=== PATIENT | female | born 1980 | race Two or more races ===

== ENCOUNTER 2019-01-09 18:25 | Emergency (ER) | payer OTHER ==
[~2019-01-09] VITALS: Ht 162.6 cm; Wt 85.3 kg
[2019-01-09 18:27] VITALS: BP 126/82
[2019-01-09] MEDS ORDERED: KETOROLAC TROMETHAMINE INJ 60 MG/2 ML VIAL IM ONE ×2 (18:46→19:00)
--- NOTE | 2019-01-09 18:53 | NUR ---
PT STATES NO CHANCE OF BEING . LMP 12/25/18
== END 2019-01-09 19:27 | disposition home or self-care (01) ==
LOC: ER 18:31
DX: M54.5 Low back pain (principal); M54.6 Pain in thoracic spine; M25.561 Pain in right knee; Z98.890 Other specified postprocedural states
CPT/HCPCS: 96372; 99283; J1885

== ENCOUNTER 2019-08-17 21:06 | Emergency (ER) | payer OTHER ==
[~2019-08-17] VITALS: Ht 152.4 cm; Wt 88.5 kg
[2019-08-17 21:53] LABS: BASOPHILS # (AUTO) 0.1 /CMM (0.0-0.2); BASOPHILS % (AUTO) 0.8 % (0.0-2.0); EOSINOPHILS % (AUTO) 0.6 % (0.0-6.0); HEMATOCRIT 41 % (33-45); HEMOGLOBIN 13.5 g/dL (11.5-14.8); LYMPHOCYTES % (AUTO) 21.5 % (20.0-44.0); MEAN CORPUSCULAR HGB CONC 33 g/dl (31.0-36.0); MEAN CORPUSCULAR VOLUME 92 fL (82-100); MONOCYTES # (AUTO) 0.8 /CMM (0.1-1.30); NEUTROPHILS # (AUTO) 6.3 /CMM (1.8-8.9); NEUTROPHILS % (AUTO) 68.1 % (43.0-81.0); PLATELET COUNT (AUTO) 303 /CMM (150-450); RED BLOOD CELL COUNT(AUTO) 4.42 MIL/uL (4.0-5.2); WHITE BLOOD COUNT (AUTO) 9.3 K/uL (4.3-11.0)
[2019-08-17 22:00] LABS: CALCIUM, SERUM 9.4 mg/dL (8.5-10.1); CREATININE 0.7 mg/dL (0.6-1.3); POTASSIUM 4.1 mmol/L (3.5-5.1)
[2019-08-17] MEDS ORDERED: IV NS 0.9% 1,000 ML BAG IV ONE (22:00)
[2019-08-17 22:06] LABS: ALBUMIN 3.7 g/dL (3.4-5.0); BILIRUBIN,TOTAL 0.2 mg/dL (0.2-1.0); TOTAL PROTEIN, SERUM 6.9 g/dL (6.4-8.2)
[2019-08-17 22:14] LABS: APPEARANCE,URINE Clear (CLEAR); BILIRUBIN,URINE Negative (NEGATIVE); BLOOD, URINE Negative Ery/uL (NEGATIVE); COLOR,URINE Yellow (YELLOW); KETONES,URINE Negative (NEGATIVE); LEUKOCYTE ESTERASE ,URINE Negative (NEGATIVE); NITRITE, URINE Negative (NEGATIVE); PROTEIN,URINE Negative (NEGATIVE); UGLUCOSE Negative (NEGATIVE)
--- NOTE | 2019-08-17 22:15 | NUR ---
PATIENT C/O ABDOMINAL PAIN (UPPER, LOWER, AND FLANKS) RADIATING TO THE BACK. PT STATES THAT SHE TOOK IBUPROFEN 600MG AT 1800 WITH NO RELIEF. AAOX4. NO SOB. BREATHING EVENLY AND UNLABORED ON ROOM AIR. CONNECTED TO THE MONITOR.
[2019-08-17 22:24] LABS: BACTERIA,URINE Few /HPF (None Seen); RBC,URINE 0-2 /HPF (0-2); SQUAMOUS EPITHELIAL CELL,UR Few /HPF (None Seen); WBC,URINE 0-2 /HPF (0-3)
[2019-08-17] MEDS ORDERED: KETOROLAC TROMETHAMINE INJ 30 MG/ML VIAL IV ONE (22:30)
[2019-08-17] MEDS ORDERED: ONDANSETRON HCL/PF - ER 4 MG/2 ML VIAL IV ONE (22:30)
[2019-08-17] MEDS ORDERED: KETOROLAC TROMETHAMINE 15 MG/ML VIAL ONE (22:32)
[2019-08-17] MEDS ORDERED: ONDANSETRON HCL/PF 4 MG/2 ML VIAL ONE (22:33)
[2019-08-18 01:19] VITALS: BP 121/74
--- NOTE | 2019-08-18 01:19 | NUR ---
IV removed. Catheter intact and site benign. Pressure and 4x4 applied to site. No bleeding noted. Patient discharged to home in stable condition. Written and verbal after care instructions given. Patient verbalizes understanding of instruction.
== END 2019-08-18 01:19 | disposition home or self-care (01) ==
LOC: ER 21:07
DX: K80.50 Calculus of bile duct without cholangitis or cholecystitis without obstruction (principal)
CPT/HCPCS: 36415; 76705; 80048; 80076; 81001; 83690; 84703; 85025; 96374; 96375; 99284; J1885; J2405 ×2; J7030; 81000-TC

== ENCOUNTER 2021-09-04 21:35 | Emergency (ER) | payer OTHER ==
[~2021-09-04] VITALS: Ht 167.6 cm; Wt 81.6 kg
[2021-09-04] MEDS ORDERED: IV NS 0.9% 500 ML BAG IV ONE (23:00)
[2021-09-04] MEDS ORDERED: MORPHINE SULFATE INJ 2 MG/ML DISP.SYRIN IV ONE (23:00)
[2021-09-04] MEDS ORDERED: ONDANSETRON HCL/PF 4 MG/2 ML VIAL IVP ONE (23:00)
[2021-09-04] MEDS ORDERED: ONDANSETRON HCL/PF 4 MG/2 ML VIAL ONE (23:02)
[2021-09-04] MEDS ORDERED: MORPHINE SULFATE INJ 4 MG/ML DISP.SYRIN ONE (23:02)
--- NOTE | 2021-09-04 23:05 | NUR ---
BLOOD COLLECTED AND SENT TO LAB
[2021-09-04 23:39] LABS: BASOPHILS % (AUTO) 0.5 % (0.0-2.0); EOSINOPHILS % (AUTO) 2.5 % (0.0-6.0); HEMATOCRIT 37 % (33-45); HEMOGLOBIN 12.4 g/dL (11.5-14.8); LYMPHOCYTES # (AUTO) 2.9 K/uL (0.8-4.8); MEAN CORPUSCULAR HGB CONC 33 g/dl (31.0-36.0); MEAN CORPUSCULAR VOLUME 90 fL (82-100); MONOCYTES # (AUTO) 0.6 K/uL (0.1-1.30); MONOCYTES % (AUTO) 8.1 % (2.0-12.0); NEUTROPHILS # (AUTO) 4.1 K/uL (1.8-8.9); NEUTROPHILS % (AUTO) 51.9 % (43.0-81.0); PLATELET COUNT (AUTO) 312 K/uL (150-450); RED BLOOD CELL COUNT(AUTO) 4.15 MIL/uL (4.0-5.2); WHITE BLOOD COUNT (AUTO) 7.9 K/uL (4.3-11.0)
[2021-09-04 23:44] LABS: BILIRUBIN,URINE NEGATIVE (NEGATIVE); COLOR,URINE YELLOW (YELLOW); LEUKOCYTE ESTERASE ,URINE NEGATIVE (NEGATIVE); NITRITE, URINE NEGATIVE (NEGATIVE); PH,URINE 5.5 (5.0-8.0); PROTEIN,URINE NEGATIVE (NEGATIVE); UGLUCOSE NEGATIVE (NEGATIVE); UROBILINOGEN,URINE 0.2 EU/dL (0.2)
[2021-09-04 23:48] LABS: CALCIUM, SERUM 9.6 mg/dL (8.5-10.1); CREATININE 0.6 mg/dL (0.6-1.3)
[2021-09-04 23:49] LABS: BACTERIA,URINE None seen /HPF (None Seen); CALCIUM OXALATE CRYSTALS,UR Few /HPF (None Seen); RBC,URINE 0-2 /HPF (0-2); SQUAMOUS EPITHELIAL CELL,UR Many /HPF (None Seen); WBC,URINE 0-2 /HPF (0-3)
[2021-09-04 23:50] LABS: MUCUS,URINE Few /LPF (None Seen)
[2021-09-05 00:08] LABS: ALBUMIN 3.4 g/dL (3.4-5.0); BILIRUBIN,DIRECT 0.1 mg/dL (0.0-0.2); BILIRUBIN,TOTAL 0.2 mg/dL (0.2-1.0); TOTAL PROTEIN, SERUM 6.6 g/dL (6.4-8.2)
--- NOTE | 2021-09-05 00:08 | NUR ---
US TECH AT BED SIDE
[2021-09-05 04:21] VITALS: BP 113/60
--- NOTE | 2021-09-05 04:21 | NUR ---
Patient discharged to home in stable condition. Written and verbal after care instructions given. Patient verbalizes understanding of instruction.
== END 2021-09-05 04:21 | disposition home or self-care (01) ==
LOC: ER 21:37
DX: R10.2 Pelvic and perineal pain (principal); R10.30 Lower abdominal pain, unspecified
CPT/HCPCS: 36415; 76856; 80048; 80076; 81001; 84702; 84703; 85025; 85730; 96361; 96374; 96375; 99284; J2270; J2405; J7040

== ENCOUNTER 2021-12-11 07:31 | Emergency (ER) | payer OTHER ==
[~2021-12-11] VITALS: Ht 167.6 cm; Wt 86.2 kg
[2021-12-11] MEDS ORDERED: KETOROLAC TROMETHAMINE INJ 30 MG/ML VIAL IV ONE (08:00)
[2021-12-11] MEDS ORDERED: ONDANSETRON HCL/PF 4 MG/2 ML VIAL IVP ONE (08:00)
[2021-12-11] MEDS ORDERED: IV NS 0.9% 1,000 ML BAG IV ONE (08:00)
[2021-12-11] MEDS ORDERED: MORPHINE SULFATE INJ 2 MG/ML DISP.SYRIN IV ONE (08:00)
--- NOTE | 2021-12-11 08:00 | NUR ---
BIBS W/ C/O DIARRHEA X5 DAYS AND ABDOMINAL PAIN RATED 10/10, NON-RADIATING. PT AMBULATORY AND A/OX4, SLOVENIAN-SPEAKING. ASSISTED TO ER BED 9.
--- NOTE | 2021-12-11 08:05 | NUR ---
LAB AT BEDSIDE
--- NOTE | 2021-12-11 08:09 | NUR ---
URINE COLLECTED AND SENT
[2021-12-11 08:16] LABS: BASOPHILS % (AUTO) 0.5 % (0.0-2.0); EOSINOPHILS % (AUTO) 0.2 % (0.0-6.0); HEMATOCRIT 36 % (33-45); HEMOGLOBIN 12.3 g/dL (11.5-14.8); LYMPHOCYTES # (AUTO) 0.9 K/uL (0.8-4.8); LYMPHOCYTES % (AUTO) 18.3 % (20.0-44.0); MEAN CORPUSCULAR HGB CONC 34 g/dl (31.0-36.0); MEAN CORPUSCULAR VOLUME 86 fL (82-100); MONOCYTES # (AUTO) 0.5 K/uL (0.1-1.30); MONOCYTES % (AUTO) 9.1 % (2.0-12.0); NEUTROPHILS # (AUTO) 3.6 K/uL (1.8-8.9); NEUTROPHILS % (AUTO) 71.9 % (43.0-81.0); PLATELET COUNT (AUTO) 249 K/uL (150-450); RED BLOOD CELL COUNT(AUTO) 4.19 MIL/uL (4.0-5.2)
--- NOTE | 2021-12-11 08:18 | NUR ---
IV LINE ESTABLISHED ON LAC #20, CONVERTED TO SALINE LOCK
--- NOTE | 2021-12-11 08:19 | NUR ---
PT TAKEN TO RADIOLOGY VIA [facility].
[2021-12-11 08:20] LABS: CALCIUM, SERUM 9.3 mg/dL (8.5-10.1); CREATININE 0.6 mg/dL (0.6-1.3); POTASSIUM 3.6 mmol/L (3.5-5.1)
[2021-12-11] MEDS ORDERED: ONDANSETRON HCL/PF 4 MG/2 ML VIAL ONE (08:20)
[2021-12-11] MEDS ORDERED: KETOROLAC TROMETHAMINE 15 MG/ML VIAL ONE (08:20)
[2021-12-11] MEDS ORDERED: MORPHINE SULFATE INJ 4 MG/ML DISP.SYRIN ONE (08:21)
[2021-12-11 08:26] LABS: ALBUMIN 3.4 g/dL (3.4-5.0); BILIRUBIN,DIRECT 0.1 mg/dL (0.0-0.2); BILIRUBIN,TOTAL 0.4 mg/dL (0.2-1.0); TOTAL PROTEIN, SERUM 6.6 g/dL (6.4-8.2)
[2021-12-11 08:34] LABS: BILIRUBIN,URINE NEGATIVE (NEGATIVE); COLOR,URINE YELLOW (YELLOW); LEUKOCYTE ESTERASE ,URINE NEGATIVE (NEGATIVE); NITRITE, URINE NEGATIVE (NEGATIVE); PH,URINE 6.5 (5.0-8.0); PROTEIN,URINE NEGATIVE (NEGATIVE); UGLUCOSE NEGATIVE (NEGATIVE); UROBILINOGEN,URINE 0.2 EU/dL (0.2)
--- NOTE | 2021-12-11 08:35 | NUR ---
PT RETURNED FROM RADIOLOGY
[2021-12-11 08:47] LABS: BACTERIA,URINE 1+ /HPF (None Seen); RBC,URINE 0-2 /HPF (0-2)
--- NOTE | 2021-12-11 08:59 | NUR ---
NS, ZOFRAN, MORPHINE, TORADOL IV GIVEN INDICATED.
--- NOTE | 2021-12-11 09:13 | NUR ---
PT VERBALIZED RELIEF FROM PAIN.
[2021-12-11] MEDS ORDERED: AMOX-430 PO (09:30)
[2021-12-11] MEDS ORDERED: HYDR-3972 PO (09:30)
[2021-12-11 09:51] VITALS: BP 116/74
--- NOTE | 2021-12-11 10:04 | NUR ---
Patient discharged to home in stable condition. Patient ambulatory w/ steady gait. IV line removed; no bleeding noted. Written and verbal after care instructions given. Patient verbalizes understanding of instruction.
== END 2021-12-11 10:04 | disposition home or self-care (01) ==
LOC: ER 07:35
DX: K52.9 Noninfective gastroenteritis and colitis, unspecified (principal)
CPT/HCPCS: 36415; 74176; 80048; 80076; 81001; 83690; 84703; 85025; 96361; 96374; 96375; 99284; J1885; J2270; J2405; J7030

== ENCOUNTER 2022-07-06 17:03 | Emergency (ER) | payer OTHER ==
[~2022-07-06] VITALS: Ht 162.6 cm; Wt 81.6 kg
[~2022-07-06 17:03] MED LIST: AMOX-430 PO; HYDR-3972 PO
[2022-07-06 17:10] VITALS: BP 106/51
--- NOTE | 2022-07-06 18:05 | NUR ---
RAPID FLU AND RAPID STREP DONE.
--- NOTE | 2022-07-06 18:10 | NUR ---
AWAITING FOR LAB TO BRING COVID PCR SWAB
--- NOTE | 2022-07-06 18:20 | NUR ---
COVID PCR NOT DONE YET, FOLLOWED UP WITH LAB WITH THE SWAB
[2022-07-06] MEDS ORDERED: IBUPROFEN 600 MG TABLET ONE (18:26)
[2022-07-06] MEDS ORDERED: IBUPROFEN 600 MG TABLET PO ONE (18:30)
--- NOTE | 2022-07-06 18:50 | NUR ---
COVID PCR NOT DONE YET, FOLLOWED UP WITH LAB WITH THE SWAB
[2022-07-06] MEDS ORDERED: AMOX500C2 PO (18:53)
[2022-07-06] MEDS ORDERED: IBUP-1955 PO (18:53)
--- NOTE | 2022-07-06 19:43 | NUR ---
pt is not in the room for covid swabbing.
--- NOTE | 2022-07-06 19:45 | NUR ---
PT HAVE ALREADY LEFT BEFORE RECEIVING AFTER CARE INSTRUCTION. PT DID NOT ALSO HAVE HER COVID SWAB DONE.
== END 2022-07-06 19:45 | disposition home or self-care (01) ==
LOC: ER 17:11
DX: J02.9 Acute pharyngitis, unspecified (principal); R59.0 Localized enlarged lymph nodes; Z79.899 Other long term (current) drug therapy
CPT/HCPCS: 86403-TC

== ENCOUNTER 2023-01-15 20:17 | Emergency (ER) | payer OTHER ==
[~2023-01-15] VITALS: Ht 165.1 cm; Wt 70.3 kg
[~2023-01-15 20:17] MED LIST changes: +AMOX500C2 PO; +CYCL5TAB PO; +IBUP-1955 PO
[2023-01-15 21:54] VITALS: TEMP 98.1
[2023-01-15 22:27] LABS: BILIRUBIN,URINE NEGATIVE (NEGATIVE); COLOR,URINE YELLOW (YELLOW); LEUKOCYTE ESTERASE ,URINE NEGATIVE (NEGATIVE); NITRITE, URINE NEGATIVE (NEGATIVE); PH,URINE 8.5 (5.0-8.0); PROTEIN,URINE NEGATIVE (NEGATIVE); UGLUCOSE NEGATIVE (NEGATIVE); UROBILINOGEN,URINE 0.2 EU/dL (0.2)
[2023-01-15] MEDS ORDERED: PHEN-704 PO (23:34)
[2023-01-15 23:59] VITALS: BP 126/70; O2SAT 97
== END 2023-01-16 | disposition home or self-care (01) ==
LOC: ER 20:21
DX: R30.0 Dysuria (principal)
CPT/HCPCS: 84703-TC

== ENCOUNTER 2023-02-25 08:58 | Emergency (ER) | payer OTHER ==
[~2023-02-25] VITALS: Ht 167.6 cm; Wt 77.6 kg
[~2023-02-25 08:58] MED LIST changes: +PHEN-704 PO
[2023-02-25] MEDS ORDERED: BENZ-13 PO (12:01)
[2023-02-25] MEDS ORDERED: GUAI120013 PO (12:01)
[2023-02-25 12:10] VITALS: BP 111/68; TEMP 98; O2SAT 100
== END 2023-02-25 12:11 | disposition home or self-care (01) ==
LOC: ER 09:09
DX: J06.9 Acute upper respiratory infection, unspecified (principal); Z79.899 Other long term (current) drug therapy; Z20.822 Contact with and (suspected) exposure to COVID-19
CPT/HCPCS: 99283; 87426; C9803

== ENCOUNTER 2024-03-02 07:18 | Emergency (ER) | payer OTHER ==
[~2024-03-02] VITALS: Ht 182.9 cm; Wt 72.6 kg
[~2024-03-02 07:18] MED LIST changes: +BENZ-13 PO; +GUAI120013 PO
[2024-03-02] MEDS ORDERED: IBUPROFEN 400 MG TABLET ONE (08:19)
[2024-03-02] MEDS ORDERED: GUAIFENESIN/CODEINE 10 ML UDC ONE (08:19)
[2024-03-02] MEDS ORDERED: IBUP-1957 PO (08:20)
[2024-03-02] MEDS ORDERED: BENZ-13 PO (08:20)
[2024-03-02] MEDS ORDERED: PSEU60TA94 PO (08:20)
[2024-03-02] MEDS: IBUPROFEN 400 MG TABLET PO ONE (08:23)
[2024-03-02] MEDS: GUAIFENESIN/CODEINE 10 ML UDC PO PRN (08:23)
[2024-03-02 09:06] VITALS: BP 111/58; TEMP 98; O2SAT 99
== END 2024-03-02 09:07 | disposition home or self-care (01) ==
LOC: ER 07:21
DX: J06.9 Acute upper respiratory infection, unspecified (principal); B34.9 Viral infection, unspecified; Z79.1 Long term (current) use of non-steroidal anti-inflammatories (NSAID); Z79.891 Long term (current) use of opiate analgesic; Z79.899 Other long term (current) drug therapy

== ENCOUNTER 2024-03-14 07:54 | Emergency (ER) | payer OTHER ==
[~2024-03-14] VITALS: Ht 157.5 cm; Wt 83.9 kg
[~2024-03-14 07:54] MED LIST changes: +IBUP-1957 PO; +PSEU60TA94 PO
[2024-03-14 08:08] VITALS: BP 122/75; TEMP 97.9; O2SAT 97
== END 2024-03-14 10:12 | disposition home or self-care (01) ==
LOC: ER 07:57
DX: J06.9 Acute upper respiratory infection, unspecified (principal)
CPT/HCPCS: 71045-TC

== ENCOUNTER 2024-06-13 21:49 | Emergency (ER) | payer OTHER ==
[~2024-06-13] VITALS: Ht 167.6 cm; Wt 86.2 kg
[2024-06-13] MEDS ORDERED: MORPHINE SULFATE INJ 2 MG/ML DISP.SYRIN ONE (22:47)
[2024-06-13] MEDS ORDERED: ONDANSETRON HCL/PF 4 MG/2 ML VIAL ONE (22:47)
[2024-06-13] MEDS: MORPHINE SULFATE INJ 2 MG/ML DISP.SYRIN IV ONE (22:57)
[2024-06-13] MEDS: ONDANSETRON HCL/PF 4 MG/2 ML VIAL IVP ONE (22:57)
[2024-06-13] MEDS: IV NS 0.9% 1,000 ML BAG IV ONE (22:57)
[2024-06-13 22:59] LABS: BASOPHILS % (AUTO) 0.3 % (0.0-2.0); EOSINOPHILS # (AUTO) 0.1 K/uL (0.0-0.7); EOSINOPHILS % (AUTO) 0.9 % (0.0-6.0); HEMATOCRIT 40 % (33-45); HEMOGLOBIN 13.3 g/dL (11.5-14.8); LYMPHOCYTES % (AUTO) 15.8 % (20.0-44.0); MEAN CORPUSCULAR HEMOGLOBIN 29 PG (26.0-33.0); MEAN CORPUSCULAR HGB CONC 34 g/dl (31.0-36.0); MEAN CORPUSCULAR VOLUME 87 fL (82-100); MONOCYTES # (AUTO) 0.9 K/uL (0.1-1.30); NEUTROPHILS # (AUTO) 9.8 K/uL (1.8-8.9); PLATELET COUNT (AUTO) 288 K/uL (150-450); RED BLOOD CELL COUNT(AUTO) 4.58 MIL/uL (4.0-5.2); RED CELL DISTRIBUTION WIDTH 13.4 % (11.5-15.0); WHITE BLOOD COUNT (AUTO) 12.8 K/uL (4.3-11.0)
[2024-06-13 23:19] LABS: PREGNANCY TEST URINE QUAL NEGATIVE (NEGATIVE)
[2024-06-13 23:20] LABS: APPEARANCE,URINE CLEAR (CLEAR); BILIRUBIN,URINE NEGATIVE (NEGATIVE); BLOOD, URINE TRACE-INTA Ery/uL (NEGATIVE); COLOR,URINE YELLOW (YELLOW); KETONES,URINE NEGATIVE (NEGATIVE); LEUKOCYTE ESTERASE ,URINE NEGATIVE (NEGATIVE); NITRITE, URINE NEGATIVE (NEGATIVE); PROTEIN,URINE NEGATIVE (NEGATIVE); UGLUCOSE NEGATIVE (NEGATIVE); UROBILINOGEN,URINE 0.2 EU/dL (0.2)
[2024-06-13 23:35] LABS: ADD URINE CULTURE NO; BACTERIA,URINE Few /HPF (None Seen); RBC,URINE 0-2 /HPF (0-2); SQUAMOUS EPITHELIAL CELL,UR 21-50 /HPF (None Seen); WBC,URINE 0-2 /HPF (0-3)
[2024-06-14 00:05] LABS: ALBUMIN 3.7 g/dL (3.4-5.0); BILIRUBIN,DIRECT 0.1 mg/dL (0.0-0.2); BILIRUBIN,TOTAL 0.2 mg/dL (0.2-1.0); TOTAL PROTEIN, SERUM 7.2 g/dL (6.4-8.2)
[2024-06-14 00:09] LABS: CREATININE 0.8 mg/dL (0.6-1.3); POTASSIUM 4.1 mmol/L (3.5-5.1)
[2024-06-14] MEDS ORDERED: CIPR-262 PO (00:44)
[2024-06-14] MEDS ORDERED: METR500T PO (00:44)
[2024-06-14] MEDS: CIPROFLOXACIN HCL 500 MG TABLET PO ONE (01:00)
[2024-06-14] MEDS: METRONIDAZOLE 500 MG TABLET PO ONE (01:00)
[2024-06-14 01:02] VITALS: BP 119/65; TEMP 98; O2SAT 98
== END 2024-06-14 01:02 | disposition home or self-care (01) ==
LOC: ER 21:55
DX: K52.9 Noninfective gastroenteritis and colitis, unspecified (principal); Z79.1 Long term (current) use of non-steroidal anti-inflammatories (NSAID); Z87.440 Personal history of urinary (tract) infections
CPT/HCPCS: 99285; 74176; 96374; 96361; 96375; 85025; 80048; 83690; 80076; 84703; 81001; 36415; J2405; J7030; J2270